=== PATIENT | female | born 1980 | race Caucasian/White ===

== ENCOUNTER 2016-12-31 02:43 | Emergency (ER) | payer MEDICAID ==
[~2016-12-31] VITALS: Wt 63.5 kg
[~2016-12-31 02:43] MED LIST: PREN1TAB49
[2016-12-31] MEDS ORDERED: ONDANSETRON 4 MG INJ IV STA (03:49)
[2016-12-31] MEDS ORDERED: morphine 4 MG/ML VIAL IV STA (03:49)
[2016-12-31] MEDS ORDERED: SOD CHLORIDE 0.9% 1,000 ML IV STA (03:49)
[2016-12-31 04:24] LABS: ADD SCAN DIFF NO
[2016-12-31 04:26] LABS: BASOPHILS % 0.3 % (0.0-2.0); HEMOGLOBIN 12.8 g/dl (12.0-16.0); LYMPHOCYTES # 0.7 10^3/ul (0.8-2.9); MEAN CORPUSCULAR HEMOGLOBIN 31.4 pg (29.0-33.0); MEAN CORPUSCULAR HGB CONC 34.6 g/dl (32.0-37.0); MEAN CORPUSCULAR VOLUME 90.7 fl (82.0-101.0); MEAN PLATELET VOLUME 9.6 fl (7.4-10.4); MONOCYTE # 0.2 10^3/ul (0.3-0.9); MONOCYTES % 1.3 % (0.0-11.0); NEUTROPHIL # 13.5 10^3/ul (1.6-7.5); PLATELET COUNT 285 10^3/UL (140-415); RED BLOOD COUNT 4.08 10^6/ul (4.20-5.40); RED CELL DISTRIBUTION WIDTH 12.6 % (11.5-14.5); WHITE BLOOD COUNT 14.5 10^3/ul (4.8-10.8)
--- NOTE | 2016-12-31 04:30 | RADRPT ---
PROCEDURE: CT Abdomen and pelvis without contrast. CLINICAL INDICATION: Abdominal pain. TECHNIQUE: CT scan of the abdomen and pelvis was performed on a multi-detector high-resolution CT scanner. Contiguous axial images were obtained from the lung bases to the ischial tuberosities wit hout intravenous contrast. Coronal and sagittal reformatted images were also obtained. Images were reviewed on the PACS workstation. One or more of the following dose reduction techniques were used: - Automated exposure control. - Adjustment of the mA and/or kV according to patient size. - Use of iterative reconstruction technique. Exam CTD/vol = 9.20 mGy. Total exam DLP = 519.41 mGy-cm. COMPARISON: None. FINDINGS: Evaluation of the lung bases demonstrates no pleural or parenchymal disease. Abdomen: The liver is normal in size. There is no focal mass or dilatation of the biliary tree. T he gallbladder is not distended. The spleen, pancreas and bilateral adrenal glands are within funmilayo l limits. Bilateral kidneys are normal in size with no contour deforming mass identified. There is no radiopaque renal or ureteral calculus identified. There is no hydronephrosis or hydroureter. T here is no retroperitoneal adenopathy. The abdominal aorta is of normal caliber. There is a tiny umbilical hernia containing fat. There is no abnormal bowel wall thickening or dist ension. There is no bowel obstruction or free air. A normal appendix is identified. There is no d iverticulosis or diverticulitis. There is no ascites. Pelvis: The bladder is unremarkable. The uterus and adnexa are within normal limits. There is no significant pelvic adenopathy or free fluid. Evaluation of the osseous structures demonstrates no suspicious lytic or blastic lesion. IMPRESSION: No acute abnormality identified within the abdomen and pelvis. Tiny umbilical hernia containing fat. .Chavo Grady MD, MD Date Time Electronically viewed and signed by .Chavo Grady MD, MD on 12/31/2016 04:29 .T/
[2016-12-31 04:35] LABS: ADD UMIC YES; URINE BILIRUBIN (Dip) NEGATIVE (NEGATIVE); URINE BLOOD (Dip) NEGATIVE (NEGATIVE); URINE COLOR LT. YELLOW (YELLOW); URINE GLUCOSE (Dip) NEGATIVE (NEGATIVE); URINE KETONES (Dip) TRACE (NEGATIVE); URINE LEUKOCYTE ESTERASE (Dip) NEGATIVE (NEGATIVE); URINE NITRITE (Dip) NEGATIVE (NEGATIVE); URINE TOTAL PROTEIN (Dip) 2+ (NEGATIVE); URINE UROBILINOGEN (Dip) 1.0 E.U./dL (0.1-1.0)
[2016-12-31 04:42] LABS: ALBUMIN 4.7 g/dl (3.3-4.9)
[2016-12-31 04:43] LABS: POTASSIUM 3.3 mmol/L (3.5-5.1)
[2016-12-31 04:44] LABS: URINE RBCS 0-2 /HPF (0)
[2016-12-31 04:45] LABS: ALBUMIN/GLOBULIN RATIO 1.3; BACTERIA,URINE OCCASIONAL; BILIRUBIN,INDIRECT 0.2 mg/dl (0-1.1); BILIRUBIN,TOTAL 0.2 mg/dl (0.2-1.3); CREATININE 0.62 mg/dl (0.44-1.00); SQUAMOUS EPITHELIAL CELL,UR MODERATE; TOTAL PROTEIN 8.3 g/dl (6.1-8.1)
[2016-12-31 04:46] LABS: CALCIUM 9.1 mg/dl (8.4-10.2)
--- NOTE | 2016-12-31 05:20 | ERD ---
ER Documentation Chief Complaint Date/Time DATE: 12/31/16 TIME: 05:19 Chief Complaint AP, N/V Since 1729 HPI This is a 36-year-old female comes in with abdominal pain and nausea vomiting since 1729. Patient says abdominal pain is diffuse in location nonlocalizing. Associated nausea one episode of vomiting. No fevers no chills which is also claims a mild dysuria. Denies any current issues ROS All systems reviewed and are negative except as per history of present illness. Medications Home Meds Reported Medications Vits W-Ca,Fe,Fa(<1MG) () 1 Tab Tablet 06/01/10 Allergies Allergies: Coded Allergies: No Known Drug Allergies (Verified Allergy, Unknown, 06/01/10) PMhx/Soc Medical and Surgical Hx: pt denies Medical Hx, pt denies Surgical Hx Hx Alcohol Use: No Hx Substance Use: No Hx Tobacco Use: No Smoking Status: Never smoker Physical Exam Vitals Vital Signs Date Time Temp Pulse Resp B/P Pulse Ox O2 Delivery O2 Flow Rate FiO2 12/31/16 03:02 98.5 70 20 119/68 100 Physical Exam Const: [] Head: Atraumatic Eyes: Normal Conjunctiva ENT: Normal External Ears, Nose and Mouth. Neck: Full range of motion..~ No meningismus. Resp: Clear to auscultation bilaterally Cardio: Regular rate and rhythm, no murmurs Abd: Soft, non tender, non distended. Normal bowel sounds Skin: No petechiae or rashes Back: No midline or flank tenderness Ext: No cyanosis, or edema Neur: Awake and alert Psych: Normal Mood and Affect Result Diagram: 12/31/165 12/31/16 0405 Results 24 hrs Laboratory Tests Test 12/31/16 04:05 White Blood Count 14.510^3/ul Red Blood Count 4.0810^6/ul Hemoglobin 12.8g/dl Hematocrit 37.0% Mean Corpuscular Volume 90.7fl Mean Corpuscular Hemoglobin 31.4pg Mean Corpuscular Hemoglobin Concent 34.6g/dl Red Cell Distribution Width 12.6% Platelet Count 19718^3/UL Mean Platelet Volume 9.6fl Neutrophils % 93.0% Lymphocytes % 5.0% Monocytes % 1.3% Eosinophils % 0.0% Basophils % 0.3% Nucleated Red Blood Cells % 0.0/100WBC Neutrophils # 13.510^3/ul Lymphocytes # 0.710^3/ul Monocytes # 0.210^3/ul Eosinophils # 0.010^3/ul Basophils # 0.010^3/ul Nucleated Red Blood Cells # 0.010^3/ul Urine Color LT. YELLOW Urine Clarity SLIGHTLY CLOUDY Urine pH 7.5 Urine Specific [place] 1.010 Urine Ketones TRACE Urine Nitrite NEGATIVE Urine Bilirubin NEGATIVE Urine Urobilinogen 1.0 E.U./dL Urine Leukocyte Esterase NEGATIVE Urine Microscopic RBC 0-2/HPF Urine Microscopic WBC 0-2/HPF Urine Squamous Epithelial Cells MODERATE Urine Amorphous Phosphates MANY Urine Bacteria OCCASIONAL Urine Hemoglobin NEGATIVE Urine Glucose NEGATIVE% Urine Total Protein 2+ Sodium Level 138mmol/L Potassium Level 3.3mmol/L Chloride Level 100mmol/L Carbon Dioxide Level 25mmol/L Anion Gap 16 Blood Urea Nitrogen 15mg/dl Creatinine 0.62mg/dl Glucose Level 154mg/dl Calcium Level 9.1mg/dl Total Bilirubin 0.2mg/dl Direct Bilirubin 0.00mg/dl Indirect Bilirubin 0.2mg/dl Aspartate Amino Transf (AST/SGOT) 24IU/L Alanine Aminotransferase (ALT/SGPT) 19IU/L Alkaline Phosphatase 79IU/L Total Protein 8.3g/dl Albumin 4.7g/dl Globulin 3.60g/dl Albumin/Globulin Ratio 1.30 Lipase 71U/L Current Medications Medications (Trade) Dose Ordered Sig/Ruel Route PRN Reason Start Time Stop Time Status Last Admin Dose Admin Sodium Chloride (NS) 1,000 ml @ 1,000 mls/hr Q1H STAT IV 12/31/16 03:49 12/31/16 04:48 DC 12/31/16 04:12 Morphine Sulfate (morphine) 4 mg ONCE STAT IV 12/31/16 03:49 12/31/16 03:50 DC 12/31/16 04:13 Ondansetron HCl (Zofran Inj) 4 mg ONCE STAT IV 12/31/16 03:49 12/31/16 03:51 DC 12/31/16 04:12 Procedures/MDM Medical decision-makin-year-old female with abdominal pain likely secondary to clinical UTI. At this point clinically stable. Discharge from Cipro, Zofran, tramadol. Cultures pending. Told to follow-up in 8 hours for serial abdominal exams. No evidence of surgical abdomen. CT of the abdomen shows no surgical process. Patient to follow-up in 8 hours Departure Diagnosis: Primary Impression: Abdominal pain Abdominal location: unspecified location Qualified Code: R10.9 - Abdominal pain, unspecified location Condition: Stable FALGUNI GA December 31, 2016 05:20
[2016-12-31] MEDS ORDERED: TRAM50TA2 PO (05:26)
[2016-12-31] MEDS ORDERED: CIPR500T4 PO (05:26)
[2016-12-31] MEDS ORDERED: ONDA4TAB14 PO (05:26)
[2016-12-31 06:20] VITALS: BP 106/68; PULSE 70; RESP 20; TEMP 98.2
== END 2016-12-31 06:21 | disposition home or self-care (01) ==
LOC: E/R 02:43
DX: R10.84 Generalized abdominal pain (principal); R11.2 Nausea with vomiting, unspecified
CPT/HCPCS: 36415; 74176; 80053; 81001; 83690; 85025; 87086; 96374; 96375; J2270; J2405; J7030; Z7502; 81003